=== PATIENT | male | born 2000 | race African-American/Black ===

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

== ENCOUNTER 2023-07-13 09:51 | Day surgery (SDC) | payer OTHER ==
[2023-07-12 09:58] VITALS: BMI 37.5
[2023-07-13] MEDS ORDERED: Bupivacaine 0.25% HCL 30 ML VIAL ONE (10:42)
[2023-07-13] MEDS ORDERED: Lidocaine 1% (PF) 30 ML VIAL ONE (10:42)
[2023-07-13] MEDS ORDERED: Midazolam HCl 2 mg/2 ml Vial ONE (12:17)
[2023-07-13] MEDS ORDERED: fentaNYL PF 100 MCG/2 ML SYRINGE ONE (12:18)
[2023-07-13] MEDS ORDERED: PROPOFOL 20 ML ONE (12:44)
[2023-07-13] MEDS ORDERED: Dexamethasone 20 MG/5 ML VIAL ONE (12:45)
[2023-07-13] MEDS ORDERED: PROPOFOL 200 MG/20 ML VIAL ONE (12:45)
[2023-07-13] MEDS ORDERED: Ondansetron PF 4 MG/2 ML Vial ONE (12:45)
[2023-07-13] MEDS ORDERED: Lidocaine 1% PF 5 ML VIAL ONE (12:45)
[2023-07-13] MEDS ORDERED: fentaNYL 50 mcg/mL 1 mL Vial ONE (13:52)
== END 2023-07-13 15:37 | disposition home or self-care (01) ==
LOC: SDC 09:51
PROVIDERS: ATTEND Surgery Surgery of the Hand
PROC: 0PSP34Z Reposition Right Metacarpal with Internal Fixation Device, Percutaneous Approach (ICD-10-PCS; principal; 2023-07-13)
DX: S62.326A Displaced fracture of shaft of fifth metacarpal bone, right hand, initial encounter for closed fracture (principal); W22.09XA Striking against other stationary object, initial encounter
CPT/HCPCS: C1894; J1100; J2001; J2250; J2405; J2704; J3010; S0020